=== PATIENT | male | born 1955 | race Caucasian/White ===

== ENCOUNTER → 2017-12-25 | Outpatient (CLI) | payer OTHER ==
[~2017-12-25] MED LIST: E-Z-GAS II EFFERVESCENT PACKET (SODIUM BICARB./CITRIC ACID/SIMETHICONE) As Ordered; E-Z-HD 98% w/w 340GM SUSP BTL As Ordered; E-Z-PAQUE 96% w/w SUSP 176GM BTL As Ordered
== END ==
LOC: M RAD 08:21
DX: K21.9 Gastro-esophageal reflux disease without esophagitis (principal)
CPT/HCPCS: 74220

== ENCOUNTER 2018-01-22 10:31 | Day surgery (SDC) | payer OTHER ==
[~2018-01-22 10:31] MED LIST changes: -E-Z-GAS II EFFERVESCENT PACKET (SODIUM BICARB./CITRIC ACID/SIMETHICONE) As Ordered; -E-Z-HD 98% w/w 340GM SUSP BTL As Ordered; -E-Z-PAQUE 96% w/w SUSP 176GM BTL As Ordered; +LIDOCAINE 2% INJ 100 MG/5 ML SDV (FOR ANES.) As Ordered; +PROPOFOL 200 MG/20 ML VIAL As Ordered; +fentaNYL 100 MCG/2 ML INJECTION (J3010) As Ordered
[2018-01-22] MEDS: NS 1,000 ML IV (10:44)
[2018-01-22] MEDS ORDERED: PROPOFOL 200 MG/20 ML VIAL As Ordered (11:21)
== END 2018-01-22 12:30 | disposition home or self-care (01) ==
LOC: M OPP 10:31
DX: Z12.11 Encounter for screening for malignant neoplasm of colon (principal); K64.0 First degree hemorrhoids; R12 Heartburn; R05 Cough; K22.8 Other specified diseases of esophagus; K44.9 Diaphragmatic hernia without obstruction or gangrene; K21.0 Gastro-esophageal reflux disease with esophagitis; J45.909 Unspecified asthma, uncomplicated; M19.90 Unspecified osteoarthritis, unspecified site; L40.9 Psoriasis, unspecified; Z98.84 Bariatric surgery status; Z91.013 Allergy to seafood; Z79.899 Other long term (current) drug therapy
CPT/HCPCS: G0121

== ENCOUNTER → 2019-04-07 | Outpatient (CLI) | payer OTHER ==
[~2019-04-07] MED LIST changes: +CLOB0.0526 EX; +CLOB05OI EXT; +COSE1INJ SC; +E-Z-GAS II EFFERVESCENT PACKET (SODIUM BICARB./CITRIC ACID/SIMETHICONE) As Ordered ONE; +E-Z-HD 98% w/w 340GM SUSP BTL As Ordered ONE; +E-Z-PAQUE 96% w/w SUSP 176GM BTL As Ordered ONE; +FLUTISP; -LIDOCAINE 2% INJ 100 MG/5 ML SDV (FOR ANES.) As Ordered; +LORA-243 PO; +MUCI600T31 PO; +PANT40TA3 PO; +PROAAER10 INH; -PROPOFOL 200 MG/20 ML VIAL As Ordered; +TERA1CA PO; +VITA100067 PO; -fentaNYL 100 MCG/2 ML INJECTION (J3010) As Ordered
--- NOTE | 2019-04-07 10:01 | REP ---
Clinical: Follow up abnormal lung findings. Technique: Axial noncontrast images from the thoracic inlet to the upper abdomen with coronal and sagittal re-formations. Comparison: None. Findings: Minimal chronic-appearing age-related interstitial changes are noted (right greater than left) there is a 6 mm noncalcified subpleural pulmonary nodule in the right posterior sulcus (image 68). No further consolidation, effusion, or pneumothorax. Tracheobronchial tree is patent. No obvious adenopathy by non contrast evaluation. The mediastinum demonstrates relatively normal thoracic aorta and heart without aneurysm or cardiomegaly. No pericardial effusion. High density oral contrast material noted within the esophagus and stomach/duodenum which limits and obscures the visualized upper abdomen. Impression: 1. 6 mm noncalcified nodule in the subpleural right lower lobe. No prior examination is available for comparison. Consider 6-month follow-up. Electronically Signed by Marcello Ferraro MD 04/07/2019 09:52 A
== END ==
LOC: M RAD 07:58
PROVIDERS: ATTEND Physician Assistant
DX: R91.1 Solitary pulmonary nodule (principal); K44.9 Diaphragmatic hernia without obstruction or gangrene; R13.10 Dysphagia, unspecified; Z98.84 Bariatric surgery status

== ENCOUNTER → 2019-04-07 | Outpatient (CLI) | payer OTHER ==
[~2019-04-07] MED LIST changes: -E-Z-GAS II EFFERVESCENT PACKET (SODIUM BICARB./CITRIC ACID/SIMETHICONE) As Ordered ONE; -E-Z-HD 98% w/w 340GM SUSP BTL As Ordered ONE; -E-Z-PAQUE 96% w/w SUSP 176GM BTL As Ordered ONE
--- NOTE | 2019-04-07 15:10 | REP ---
Examination Requested: Upper G.I. Series With KUB Reason For Exam: History of lap band, dysphasia Upper GI Air Contrast The procedure was performed by NIC Ortiz, under the direct supervision of Dr. Ferraro. The images were reviewed with Dr. Ferraro. The electrical designer drafter film shows no organomegaly or pathological masses. The intestinal gas pattern appears normal. Liquid barium was given in the erect position as well as liquid barium in the prone oblique position in order to perform a single contrast upper GI examination. The oral and pharyngeal stages of deglutition were unremarkable. Esophageal transport is efficient and there is no esophagitis, stricture, or mucosal ring noted. There is a small hiatal hernia. Gastroesophageal reflux was not visualized throughout the course of the exam. The stomach ayers are normally outlined. The patient is noted to be status post gastric banding and the lap band is in normal position. The rugal folds are smooth and regular. There is no gastritis, neoplasm, ulcer disease noted. The duodenal ayers are normally outlined. The mucosal folds are smooth and regular. There is no duodenitis, peptic ulcer disease, or neoplasm noted. The visualized portion of the proximal small bowel appears normal in course and caliber. Impression: 1. Small hiatal hernia. 2. Lap band is normal position. 0.9 minutes of fluoroscopy time was utilized for this procedure. Some fluoroscopic images are performed with last image hold technology. These images require no additional radiation. Reviewed by NIC Carey 04/07/2019 01:07 P Electronically Signed by Marcello Ferraro MD 04/07/2019 03:02 P
== END ==
LOC: M RAD 07:49
PROVIDERS: ATTEND Surgery
DX: K44.9 Diaphragmatic hernia without obstruction or gangrene (principal); R13.10 Dysphagia, unspecified; Z98.84 Bariatric surgery status

== ENCOUNTER → 2019-06-23 | Outpatient (CLI) | payer OTHER ==
[~2019-06-23] MED LIST changes: +METHACHOLINE KIT (J7674) INH ONE
--- NOTE | 2019-06-23 15:33 | PFTRPT ---
Site: 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 Review Status: Not Reviewed Pre-Bronch Post-Bronch Pred Actual %Pred Actual %Chng SPIROMETRY FVC (L) 4.46 2.75 61 3.12 13 FEV1 (L) 3.33 2.10 63 2.21 5 FEV1/FVC (%) 75 76 101 71 -7 FEF 25% (L/sec) 7.69 4.14 53 4.49 8 FEF 50% (L/sec) 4.76 2.05 43 2.42 17 FEF 75% (L/sec) 1.41 0.71 50 0.84 18 FEF 25-75% (L/sec) 2.66 1.67 62 2.03 21 FEF Max (L/sec) 8.65 5.58 64 5.58 FIVC (L) 3.09 3.16 2 FIF 50% (L/sec) 4.60 2.73 59 3.30 20 FIF Max (L/sec) 2.89 3.52 21 Expiratory Time (sec) 7.98 5.62 -29 Back Extrap Vol (L) 0.05 0.06 14 Time To FEFmax (sec) 0.063 0.065 2
== END ==
LOC: M CARPUL 14:31
PROVIDERS: ATTEND Physician Assistant
DX: R06.00 Dyspnea, unspecified (principal)

== ENCOUNTER → 2019-10-21 | Outpatient (CLI) | payer OTHER ==
[~2019-10-21] MED LIST changes: -METHACHOLINE KIT (J7674) INH ONE
--- NOTE | 2019-10-22 16:19 | REP ---
Clinical: Abnormal lung findings. Technique: Axial noncontrast images from the thoracic inlet to the upper abdomen with coronal and sagittal re-formations. Comparison: 04/07/2019. Findings: The bilateral lung ca are relatively well aerated and essentially clear. No focal consolidation, significant nodule or mass lesion. A small 6 mm noncalcified nodule in the right posterior lung base appears to be replaced by a minimal scarring and chronic change. No pleural effusion. No pneumothorax. Tracheobronchial tree is patent. Mediastinum demonstrates minimal atherosclerotic changes to the thoracic aorta and coronary arteries without aortic aneurysm or cardiomegaly. No pericardial effusion. Surrounding musculoskeletal structures are intact. Upper abdomen demonstrates previous Lab banding. Impression: 1. Minimal scarring at the right lung base at the site of previously noted 6 mm noncalcified nodule which has subsequently resolved. 2. No acute mediastinal or pleuroparenchymal process appreciated. Electronically Signed by Marcello Ferraro MD 10/22/2019 04:10 P
== END ==
LOC: M RAD 09:46
PROVIDERS: ATTEND Physician Assistant
DX: J98.4 Other disorders of lung (principal); I70.0 Atherosclerosis of aorta; I25.10 Atherosclerotic heart disease of native coronary artery without angina pectoris

== ENCOUNTER 2020-04-27 11:09 | Emergency (ER) | payer OTHER, MEDICARE ==
[~2020-04-27] VITALS: Ht 175.3 cm; Wt 124.5 kg
[~2020-04-27 11:09] MED LIST changes: +PANT40TA29 PO; -PANT40TA3 PO
[2020-04-27] MEDS ORDERED: IBUP200T45 PO (11:28)
[2020-04-27] MEDS ORDERED: OXYC-517 PO (11:28)
[2020-04-27 11:58] LABS: BASO % 0.4 % (0.0-1.0); EOS # 0.5 10^3/uL (0.0-0.5); EOS % 7.5 % (0.0-3.0); HEMOGLOBIN 12.6 g/dl (13.5-17.5); LYMPH # 0.9 10^3/uL (1.5-5.0); LYMPH % 13.1 % (24.0-44.0); MEAN CORPUSCULAR HEMOGLOBIN 29.1 pg (27.0-33.0); MEAN CORPUSCULAR HGB CONC 33.2 g/dl (32.0-36.5); MEAN CORPUSCULAR VOLUME 87.8 fl (80.0-96.0); MONO # 0.6 10^3/uL (0.0-0.8); MONO % 8.8 % (0.0-5.0); NEUTROPHILS % 69.9 % (36.0-66.0); PLATELET COUNT, AUTOMATED 186 10^3/uL (150-450); RED BLOOD COUNT 4.33 10^6/uL (4.30-6.10); WHITE BLOOD COUNT 7.1 10^3/uL (4.0-10.0)
[2020-04-27 12:12] LABS: INR 1.01; PROTHROMBIN TIME 13.5 SECONDS (12.5-14.3)
[2020-04-27 12:25] LABS: ALBUMIN 3.6 GM/DL (3.2-5.2); ALT/SGPT 39 U/L (12-78); BILIRUBIN,DIRECT 0.2 MG/DL (0.0-0.2); BILIRUBIN,TOTAL 0.8 MG/DL (0.2-1.0); BLOOD UREA NITROGEN 21 MG/DL (7-18); C REACTIVE PROTEIN QUANTITATIV 4.39 MG/DL (0.00-0.30); CALCIUM LEVEL 8.6 MG/DL (8.8-10.2); CARBON DIOXIDE LEVEL 30 MEQ/L (21-32); CHLORIDE LEVEL 103 MEQ/L (98-107); CREATININE FOR GFR 1.04 MG/DL (0.70-1.30); GLOMERULAR FILTRATION RATE > 60.0 (>49); GLUCOSE, FASTING 97 MG/DL (70-100); POTASSIUM SERUM 4.4 MEQ/L (3.5-5.1); SODIUM LEVEL 139 MEQ/L (136-145)
[2020-04-27 12:29] LABS: ERYTHROCYTE SEDIMENTATION RATE 41 mm/hr (0-20)
--- NOTE | 2020-04-27 13:14 | REP ---
INDICATION: left calf swelling, s/p knee replacement concern clot. COMPARISON: None. TECHNIQUE: Left lower extremity duplex venous ultrasound. FINDINGS: The deep veins are anechoic and fully compressible from the groin to the popliteal fossa in the left lower extremity. Color flow imaging is homogeneous. Spectral Doppler interrogation demonstrates intact respiratory variation in flow and normal manual augmentation of flow. There is no evidence of deep vein thrombosis. IMPRESSION: Negative left lower extremity duplex venous ultrasound. No evidence of deep vein thrombosis. <Electronically signed by Cruz Garcia > 04/27/20 [id number]
[2020-04-27 14:12] VITALS: BP 150/77
== END 2020-04-27 14:33 | disposition home or self-care (01) ==
LOC: M ED 11:09
DX: R22.42 Localized swelling, mass and lump, left lower limb (principal); Z98.890 Other specified postprocedural states; Z98.84 Bariatric surgery status; Z91.018 Allergy to other foods

== ENCOUNTER 2020-05-11 18:09 | Emergency (ER) | payer MEDICARE, OTHER ==
[~2020-05-11] VITALS: Ht 175.3 cm; Wt 113.6 kg
[~2020-05-11 18:09] MED LIST changes: +IBUP200T45 PO; +OXYC-517 PO
[2020-05-11] MEDS ORDERED: ACET1TAB55 PO (18:20)
[2020-05-11] MEDS ORDERED: ASPI81TA26 PO (18:20)
[2020-05-11] MEDS ORDERED: ONDANSETRON 4 MG ORAL DISINTEGRATING TAB PO ONE (19:45)
[2020-05-11] MEDS ORDERED: ONDA4TAB6 PO (20:05)
[2020-05-11 20:18] VITALS: BP 148/74
== END 2020-05-11 20:20 | disposition home or self-care (01) ==
LOC: M ED 18:09
DX: R51.9 Headache, unspecified (principal); R11.0 Nausea; R10.9 Unspecified abdominal pain; M79.10 Myalgia, unspecified site; Z20.828 Contact with and (suspected) exposure to other viral communicable diseases; J45.909 Unspecified asthma, uncomplicated; Z87.891 Personal history of nicotine dependence; Z98.890 Other specified postprocedural states; Z91.013 Allergy to seafood; Z79.82 Long term (current) use of aspirin
CPT/HCPCS: 99283; U0003

== ENCOUNTER → 2020-06-01 | Outpatient (CLI) | payer MEDICARE, OTHER ==
[~2020-06-01] MED LIST changes: +ACET1TAB55 PO; +ASPI81TA26 PO; +ONDA4TAB6 PO
--- NOTE | 2020-06-02 15:06 | SLEEPCENT ---
NOCTURNAL POLYSOMNOGRAPHY DATE: 06/01/2020 ORDERED BY: KIM Simon Nocturnal polysomnography was performed for evaluation of sleep physiology in this patient with a history of excessive somnolence and nonrestorative sleep. 7 hours and 54 minutes of data were reviewed. There were 374.5 minutes of sleep identified. Sleep latency was prolonged at 30 minutes. REM latency was normal at 80 minutes. Sleep architecture was fair with some fragmentation. There were three REM cycles noted. Overall sleep efficiency was 79.8%. The electrocardiogram showed a sinus rhythm with an average heart rate of 58 beats per minute. Rate range 40 to 104. Frequent PVCs were noted during portions of the study. EEG showed normal waveforms for wake and sleep. There were 51 respiratory events identified of 10 seconds in duration or greater for an apnea-hypopnea index of 8.2. The events were obstructive and not exclusive to sleep stage nor body posture. Arousals from respiratory events were noted 4.6 times per hour and oxygen desaturations were seen into the 80s. There was also significant limb activity appreciated with four trains of 30+ events. Limb movement arousal index was 14.9. IMPRESSION: 1. Obstructive sleep apnea syndrome (G47.33), apnea-hypopnea index 8.2. 2. Possible periodic limb movement disorder (G47.61), limb movement arousal index 14.9. RECOMMENDATION: The patient should be encouraged to return to [facility] for pressure therapy. In the interim, alcohol and sedative avoidance should be practiced and caution exercised during the operation of motor vehicles. Pending results of pressure therapy, interventions to reduce the frequency of arousal from limb activity may also be helpful. Hasmukh Paris
== END ==
LOC: M SLEEP 20:00
PROVIDERS: ATTEND Physician Assistant
DX: G47.33 Obstructive sleep apnea (adult) (pediatric) (principal); G47.61 Periodic limb movement disorder; R40.0 Somnolence

== ENCOUNTER → 2021-08-02 | Outpatient (REF) | payer MEDICARE, OTHER ==
[~2021-08-02] MED LIST changes: +ASPI325T57 PO; +BACT800T5 PO; +DICL1GEL3 TOP; +HIBI4LIQ EX; +MUPI2OI NARES; +RIFA30CA PO; +TREM100I SC
[2021-08-02 13:25] LABS: APPEARANCE, URINE CLEAR (CLEAR); BACTERIA, URINE AUTO NEGATIVE (NEGATIVE); BILIRUBIN, URINE AUTO NEGATIVE (NEGATIVE); BLOOD, URINE BLOOD NEGATIVE (NEGATIVE); COLOR, URINE YELLOW (YELLOW); GLUCOSE, URINE (UA) AUTO NEGATIVE (NEGATIVE); KETONE, URINE AUTO NEGATIVE (NEGATIVE); LEUKOCYTE ESTERASE, URINE AUTO NEGATIVE (NEGATIVE); MUCUS, URINE SMALL (NEGATIVE); NITRITE, URINE AUTO NEGATIVE (NEGATIVE); PROTEIN, URINE AUTO NEGATIVE (NEGATIVE); RBC, URINE AUTO 1 /HPF (0-3); SPECIFIC GRAVITY URINE AUTO 1.024 (1.002-1.035); SQUAMOUS EPITHELIAL CELL UR AU 0 /HPF (0-6); UROBILINOGEN, URINE AUTO 0.2 mg/dL (0.0-2.0); WBC, URINE AUTO 0 /HPF (0-3)
== END ==
LOC: M SMT 12:51
PROVIDERS: ATTEND Physician Assistant
DX: N32.81 Overactive bladder (principal); Z79.899 Other long term (current) drug therapy

== ENCOUNTER 2021-08-21 12:22 | Inpatient (IN) | payer MEDICARE, OTHER ==
[~2021-08-21] VITALS: Ht 175.3 cm; Wt 124.5 kg
[~2021-08-21 12:22] MED LIST changes: -ASPI325T57 PO; -BACT800T5 PO; -DICL1GEL3 TOP; -HIBI4LIQ EX; -MUPI2OI NARES; -RIFA30CA PO; -TREM100I SC
[2021-08-21 14:45] LABS: BLOOD UREA NITROGEN 18 MG/DL (7-18); CALCIUM LEVEL 8.6 MG/DL (8.8-10.2); CARBON DIOXIDE LEVEL 26 MEQ/L (21-32); CHLORIDE LEVEL 104 MEQ/L (98-107); CREATININE FOR GFR 0.99 MG/DL (0.70-1.30); GLOMERULAR FILTRATION RATE > 60.0 (>49); GLUCOSE, FASTING 139 MG/DL (70-100); SODIUM LEVEL 135 MEQ/L (136-145)
[2021-08-21] MEDS ORDERED: NS 500 ML IV ONE (15:05)
[2021-08-21 15:20] LABS: BASO % 0.3 % (0.0-1.0); EOS # 0.1 10^3/uL (0.0-0.5); EOS % 0.4 % (0.0-3.0); HEMATOCRIT 42.9 % (42.0-52.0); HEMOGLOBIN 14.9 g/dl (13.5-17.5); LYMPH # 0.7 10^3/uL (1.5-5.0); MEAN CORPUSCULAR HEMOGLOBIN 29.5 pg (27.0-33.0); MEAN CORPUSCULAR HGB CONC 34.7 g/dl (32.0-36.5); NEUTROPHILS # 11.7 10^3/uL (1.5-8.5); NEUTROPHILS % 86.9 % (36.0-66.0); PLATELET COUNT, AUTOMATED 137 10^3/uL (150-450); RED BLOOD COUNT 5.05 10^6/uL (4.30-6.10); WHITE BLOOD COUNT 13.5 10^3/uL (4.0-10.0)
[2021-08-21 15:52] LABS: ALBUMIN 3.6 GM/DL (3.2-5.2); BILIRUBIN,DIRECT 0.2 MG/DL (0.0-0.2); BILIRUBIN,TOTAL 0.9 MG/DL (0.2-1.0); TOTAL PROTEIN 7.7 GM/DL (6.4-8.2)
[2021-08-21 17:12] LABS: RSV AMPLIFICATION NEGATIVE (NEGATIVE)
[2021-08-21] MEDS ORDERED: ACETAMINOPHEN 325 MG TAB PO ONE (17:45)
[2021-08-21] MEDS ORDERED: VANCOMYCIN HCL 2,000 MG in D5W 500 ML IV ONE (17:45)
[2021-08-21] MEDS ORDERED: NS 1,000 ML IV ONE (17:55)
[2021-08-21] MEDS ORDERED: VANCOMYCIN HCL 1,000 MG, VIAL MATE ADAPTER 1 EACH in NS 250 ML IV SCH (18:00)
[2021-08-21] MEDS ORDERED: ACETAMINOPHEN TAB 650MG DOSE (2X325MG) PO PRN (18:00)
[2021-08-21] MEDS ORDERED: VANCOMYCIN HCL 1,000 MG, VIAL MATE ADAPTER 1 EACH in NS 250 ML IV ONE ×2 (18:00→19:00)
[2021-08-21] MEDS ORDERED: DICL1GEL3 TOP (18:54)
[2021-08-21] MEDS ORDERED: TREM100I SC (18:54)
[2021-08-21] MEDS ORDERED: ASPI325T57 PO (18:54)
[2021-08-21] MEDS ORDERED: HOME MED LIST COMPLETE! XX SCH (18:55)
[2021-08-21 19:19] LABS: INR 1.19; PROTHROMBIN TIME 15.5 SECONDS (12.7-14.5)
[2021-08-21 19:20] LABS: PARTIAL THROMBOPLASTIN TIME 33.7 SECONDS (25.9-37.0)
[2021-08-21] MEDS ORDERED: ALBUTEROL 90 MCG/ACT 8GM HFA INHALER INH PRN (20:15)
[2021-08-21] MEDS ORDERED: oxyCODONE 5MG TAB PO PRN (20:15)
[2021-08-21 20:25] VITALS: BP 154/72
[2021-08-21] MEDS: BACITRACIN OINTMENT 30GM TUBE TOP SCH (21:00)
[2021-08-21] MEDS: ENOXAPARIN 40MG/0.4ML SYRINGE (J1650 PER 10MG) SC SCH (21:20)
[2021-08-21] MEDS: cefTRIAXone SOD 1 GM in D5W MINI-BAG PLUS 50 ML IV SCH (21:20)
[2021-08-22] MEDS: VANCOMYCIN HCL 750 MG, VIAL MATE ADAPTER 1 EACH in NS 250 ML IV SCH ×6 (02:13→19:45)
[2021-08-22 06:00] VITALS: BP 136/62
[2021-08-22 07:04] LABS: HEMATOCRIT 38.4 % (42.0-52.0); HEMOGLOBIN 13.2 g/dl (13.5-17.5); MEAN CORPUSCULAR HEMOGLOBIN 28.9 pg (27.0-33.0); MEAN CORPUSCULAR HGB CONC 34.4 g/dl (32.0-36.5); MEAN CORPUSCULAR VOLUME 84.2 fl (80.0-96.0); PLATELET COUNT, AUTOMATED 120 10^3/uL (150-450); RED BLOOD COUNT 4.56 10^6/uL (4.30-6.10); WHITE BLOOD COUNT 10.1 10^3/uL (4.0-10.0)
[2021-08-22 07:25] LABS: ALT/SGPT 29 U/L (12-78); BILIRUBIN,TOTAL 0.8 MG/DL (0.2-1.0); BLOOD UREA NITROGEN 14 MG/DL (7-18); CALCIUM LEVEL 8.1 MG/DL (8.8-10.2); CARBON DIOXIDE LEVEL 24 MEQ/L (21-32); CHLORIDE LEVEL 108 MEQ/L (98-107); CREATININE FOR GFR 0.78 MG/DL (0.70-1.30); GLOMERULAR FILTRATION RATE > 60.0 (>49); GLUCOSE, FASTING 118 MG/DL (70-100); POTASSIUM SERUM 3.9 MEQ/L (3.5-5.1); SODIUM LEVEL 139 MEQ/L (136-145); TOTAL PROTEIN 6.2 GM/DL (6.4-8.2)
[2021-08-22] MEDS: ASPIRIN 325 MG TAB PO SCH (10:02)
[2021-08-22] MEDS: BACITRACIN OINTMENT 30GM TUBE TOP SCH ×2 (10:03→21:06)
[2021-08-22 17:51] VITALS: BP 142/58
[2021-08-22] MEDS: ENOXAPARIN 40MG/0.4ML SYRINGE (J1650 PER 10MG) SC SCH (21:06)
[2021-08-22] MEDS: cefTRIAXone SOD 1 GM in D5W MINI-BAG PLUS 50 ML IV SCH (21:06)
[2021-08-23] MEDS: VANCOMYCIN HCL 750 MG, VIAL MATE ADAPTER 1 EACH in NS 250 ML IV SCH ×2 (02:09→03:31)
[2021-08-23 06:00] VITALS: BP 149/76
[2021-08-23 06:38] LABS: HEMOGLOBIN 13.7 g/dl (13.5-17.5); MEAN CORPUSCULAR HEMOGLOBIN 29.2 pg (27.0-33.0); MEAN CORPUSCULAR HGB CONC 34.3 g/dl (32.0-36.5); MEAN CORPUSCULAR VOLUME 85.3 fl (80.0-96.0); PLATELET COUNT, AUTOMATED 135 10^3/uL (150-450); RED BLOOD COUNT 4.69 10^6/uL (4.30-6.10); WHITE BLOOD COUNT 6.5 10^3/uL (4.0-10.0)
[2021-08-23 07:02] LABS: ALBUMIN 2.8 GM/DL (3.2-5.2); ALT/SGPT 31 U/L (12-78); BILIRUBIN,TOTAL 0.4 MG/DL (0.2-1.0); BLOOD UREA NITROGEN 13 MG/DL (7-18); CALCIUM LEVEL 8.7 MG/DL (8.8-10.2); CARBON DIOXIDE LEVEL 28 MEQ/L (21-32); CHLORIDE LEVEL 110 MEQ/L (98-107); CREATININE FOR GFR 0.69 MG/DL (0.70-1.30); GLOMERULAR FILTRATION RATE > 60.0 (>49); GLUCOSE, FASTING 114 MG/DL (70-100); POTASSIUM SERUM 4.4 MEQ/L (3.5-5.1); SODIUM LEVEL 141 MEQ/L (136-145); TOTAL PROTEIN 6.8 GM/DL (6.4-8.2)
[2021-08-23] MEDS: VANCOMYCIN HCL 1,000 MG, VIAL MATE ADAPTER 1 EACH in NS 250 ML IV SCH ×4 (10:00→17:45)
[2021-08-23] MEDS: ASPIRIN 325 MG TAB PO SCH (10:43)
[2021-08-23] MEDS: BACITRACIN OINTMENT 30GM TUBE TOP SCH ×2 (10:44→20:32)
[2021-08-23] MEDS ORDERED: ISOVUE-370 76% 100ML VIAL As Ordered ONE (11:23)
[2021-08-23 14:00] VITALS: BP 149/74
[2021-08-23 18:58] VITALS: BP_SYST 116; BP_SYST 161; BP_DIAS 50; BP_DIAS 78
[2021-08-23] MEDS: cefTRIAXone SOD 1 GM in D5W MINI-BAG PLUS 50 ML IV SCH (20:31)
[2021-08-23] MEDS: ENOXAPARIN 40MG/0.4ML SYRINGE (J1650 PER 10MG) SC SCH (20:31)
[2021-08-24] MEDS: VANCOMYCIN HCL 1,000 MG, VIAL MATE ADAPTER 1 EACH in NS 250 ML IV SCH (01:12)
[2021-08-24 06:00] VITALS: BP 160/79
[2021-08-24 08:16] LABS: HEMATOCRIT 40.2 % (42.0-52.0); MEAN CORPUSCULAR HEMOGLOBIN 29.2 pg (27.0-33.0); MEAN CORPUSCULAR HGB CONC 34.8 g/dl (32.0-36.5); MEAN CORPUSCULAR VOLUME 83.9 fl (80.0-96.0); PLATELET COUNT, AUTOMATED 159 10^3/uL (150-450); RED BLOOD COUNT 4.79 10^6/uL (4.30-6.10); WHITE BLOOD COUNT 4.7 10^3/uL (4.0-10.0)
[2021-08-24 08:44] LABS: ALT/SGPT 37 U/L (12-78); BILIRUBIN,TOTAL 0.4 MG/DL (0.2-1.0); BLOOD UREA NITROGEN 14 MG/DL (7-18); CALCIUM LEVEL 8.4 MG/DL (8.8-10.2); CARBON DIOXIDE LEVEL 26 MEQ/L (21-32); CHLORIDE LEVEL 106 MEQ/L (98-107); CREATININE FOR GFR 0.66 MG/DL (0.70-1.30); GLOMERULAR FILTRATION RATE > 60.0 (>49); GLUCOSE, FASTING 99 MG/DL (70-100); MAGNESIUM LEVEL 2.1 MG/DL (1.8-2.4); POTASSIUM SERUM 3.8 MEQ/L (3.5-5.1); SODIUM LEVEL 140 MEQ/L (136-145); TOTAL PROTEIN 6.6 GM/DL (6.4-8.2)
[2021-08-24] MEDS ORDERED: ENOXAPARIN 40MG/0.4ML SYRINGE (J1650 PER 10MG) SC SCH (09:00)
[2021-08-24 09:45] LABS: VANCOMYCIN LEVEL TROUGH 19.4 UG/ML (10.0-20.0)
[2021-08-24] MEDS: BACITRACIN OINTMENT 30GM TUBE TOP SCH (10:05)
[2021-08-24] MEDS: ASPIRIN 325 MG TAB PO SCH (10:05)
[2021-08-24] MEDS ORDERED: VANCOMYCIN HCL 1,000 MG, VIAL MATE ADAPTER 1 EACH in NS 250 ML IV SCH (12:00)
[2021-08-24 12:03] LABS: C REACTIVE PROTEIN QUANTITATIV 8.33 MG/DL (0.00-0.30)
[2021-08-24 14:00] VITALS: BP 152/64
[2021-08-24] MEDS ORDERED: BACT800T5 PO (14:01)
[2021-08-24] MEDS ORDERED: RIFA30CA PO (14:01)
[2021-08-24] MEDS ORDERED: HIBI4LIQ EX (14:01)
[2021-08-24] MEDS ORDERED: MUPI2OI NARES (14:01)
== END 2021-08-24 16:46 | disposition home or self-care (01) | DRG 872 ==
LOC: M ED 12:22 → M ED INP 17:59 → EEVIPCON 17:59 → M MSPAV 20:24
PROVIDERS: ADMIT Internal Medicine; ATTEND Family Medicine
DX: A41.9 Sepsis, unspecified organism (principal); L03.116 Cellulitis of left lower limb; N39.0 Urinary tract infection, site not specified; Z68.41 Body mass index [BMI] 40.0-44.9, adult; L02.422 Furuncle of left axilla; Z96.642 Presence of left artificial hip joint; R53.1 Weakness; J45.909 Unspecified asthma, uncomplicated; K21.9 Gastro-esophageal reflux disease without esophagitis; L40.9 Psoriasis, unspecified; E66.9 Obesity, unspecified; B96.20 Unspecified Escherichia coli [E. coli] as the cause of diseases classified elsewhere; R32 Unspecified urinary incontinence; Z96.652 Presence of left artificial knee joint; Z79.82 Long term (current) use of aspirin; Z79.899 Other long term (current) drug therapy; Z91.013 Allergy to seafood

== ENCOUNTER → 2021-10-16 | Outpatient (REF) | payer MEDICARE, OTHER ==
[~2021-10-16] MED LIST changes: +ASPI325T57 PO; +BACT800T5 PO; +DICL1GEL3 TOP; +HIBI4LIQ EX; +MUPI2OI NARES; +RIFA30CA PO; +TREM100I SC
== END ==
LOC: M SFHCPLAZ 12:50
PROVIDERS: ATTEND Internal Medicine Infectious Disease
DX: A49.02 Methicillin resistant Staphylococcus aureus infection, unspecified site (principal)

== ENCOUNTER → 2021-11-02 | Outpatient (REF) | payer MEDICARE, OTHER ==
[2021-11-02 13:40] LABS: APPEARANCE, URINE CLEAR (CLEAR); BACTERIA, URINE AUTO NEGATIVE (NEGATIVE); BILIRUBIN, URINE AUTO NEGATIVE (NEGATIVE); BLOOD, URINE BLOOD 2+ (NEGATIVE); CALCIUM OXALATE CRYSTALS SMALL; COLOR, URINE YELLOW (YELLOW); GLUCOSE, URINE (UA) AUTO NEGATIVE (NEGATIVE); KETONE, URINE AUTO NEGATIVE (NEGATIVE); LEUKOCYTE ESTERASE, URINE AUTO NEGATIVE (NEGATIVE); MUCUS, URINE SMALL (NEGATIVE); NITRITE, URINE AUTO NEGATIVE (NEGATIVE); PROTEIN, URINE AUTO NEGATIVE (NEGATIVE); RBC, URINE AUTO 4 /HPF (0-3); SPECIFIC GRAVITY URINE AUTO 1.026 (1.002-1.035); SQUAMOUS EPITHELIAL CELL UR AU 2 /HPF (0-6); UROBILINOGEN, URINE AUTO 0.2 mg/dL (0.0-2.0); WBC, URINE AUTO 1 /HPF (0-3)
== END ==
LOC: M SMT 12:44
PROVIDERS: ATTEND Physician Assistant
DX: N32.81 Overactive bladder (principal)

== ENCOUNTER 2023-06-24 19:44 | Observation (INO) | payer MEDICARE, OTHER ==
[~2023-06-24] VITALS: Ht 175.3 cm; Wt 118.0 kg
[~2023-06-24 19:44] MED LIST changes: +DICL100G10 TOP; -DICL1GEL3 TOP
[2023-06-24 20:39] LABS: BASO # 0.1 10^3/uL (0.0-0.2); BASO % 0.6 % (0.0-1.0); EOS # 0.3 10^3/uL (0.0-0.5); EOS % 3.8 % (0.0-3.0); HEMATOCRIT 42.4 % (42.0-52.0); HEMOGLOBIN 14.6 g/dl (13.5-17.5); LYMPH # 1.2 10^3/uL (1.5-5.0); LYMPH % 15.1 % (24.0-44.0); MEAN CORPUSCULAR HEMOGLOBIN 28.5 pg (27.0-33.0); MEAN CORPUSCULAR HGB CONC 34.4 g/dl (32.0-36.5); MEAN CORPUSCULAR VOLUME 82.7 fl (80.0-96.0); MONO # 0.8 10^3/uL (0.0-0.8); MONO % 10.2 % (2.0-8.0); NEUTROPHILS # 5.5 10^3/uL (1.5-8.5); PLATELET COUNT, AUTOMATED 176 10^3/uL (150-450); RED BLOOD COUNT 5.13 10^6/uL (4.30-6.10); WHITE BLOOD COUNT 7.8 10^3/uL (4.0-10.0)
[2023-06-24 20:58] LABS: CK-MB VALUE MASS < 1.0 NG/ML (<3.6)
[2023-06-24 20:59] LABS: LIPASE 29 U/L (12-53)
[2023-06-24 21:01] LABS: CPK CREATINE PHOSPHOKINASE 106 U/L (46-171); MB/CK RELATIVE INDEX 0.94 (< OR =4)
[2023-06-24 21:02] LABS: ALBUMIN 3.5 G/DL (3.2-5.2); ALKALINE PHOSPHATASE 70 U/L (46-116); ALT/SGPT 24 U/L (7.0-40); AST/SGOT 13 U/L (<34); BILIRUBIN,DIRECT 0.2 MG/DL (<0.4); BILIRUBIN,TOTAL 0.5 MG/DL (0.3-1.2); BLOOD UREA NITROGEN 25 MG/DL (9-23); CALCIUM LEVEL 8.5 MG/DL (8.3-10.6); CARBON DIOXIDE LEVEL 26 MMOL/L (20-31); CHLORIDE LEVEL 105 MMOL/L (98-107); CREATININE FOR GFR 0.89 MG/DL (0.70-1.30); GLOMERULAR FILTRATION RATE > 60.0 (>49); GLUCOSE, FASTING 134 MG/DL (74-106); POTASSIUM SERUM 3.8 MMOL/L (3.5-5.1); SODIUM LEVEL 136 MMOL/L (136-145); THYROID STIMULATING HORMONE 2.017 uIU/ML (0.55-4.78); TOTAL PROTEIN 6.8 G/DL (5.7-8.2)
[2023-06-24] MEDS ORDERED: ISOVUE-370 76% 100ML VIAL As Ordered ONE (21:42)
[2023-06-24 22:05] LABS: MB/CK RELATIVE INDEX 0.92 (< OR =4)
[2023-06-24] MEDS ORDERED: HEPARIN SOD (PORCINE) 5000UNITS/ML 1ML VIAL/SYRINGE IV PRN (22:20)
[2023-06-24] MEDS ORDERED: HEPARIN 25,000 UNITS/250 ML D5W BAG (100 UNITS/ML) As Ordered ONE (22:25)
[2023-06-24] MEDS: HEPARIN SOD (PORCINE) 5000UNITS/ML 1ML VIAL/SYRINGE IV ONE (22:28)
[2023-06-24] MEDS: HEPARIN DRIP 25,000 UNITS in IV 1 EA IV SCH (22:29)
[2023-06-24 22:47] LABS: INR 1.15; PROTHROMBIN TIME 14.3 SECONDS (12.5-14.5)
[2023-06-24 22:48] LABS: PARTIAL THROMBOPLASTIN TIME 31.2 SECONDS (24.8-34.2)
[2023-06-24 23:29] LABS: RSV AMPLIFICATION NEGATIVE (NEGATIVE)
[2023-06-25] MEDS ORDERED: RISA150S2 SQ (00:01)
[2023-06-25] MEDS ORDERED: ALBU8.5H INH (00:01)
[2023-06-25] MEDS ORDERED: ADVA230A INH (00:02)
[2023-06-25] MEDS ORDERED: LORA-622 PO (00:02)
[2023-06-25] MEDS ORDERED: [UNRECOGNIZED DRUG - CODE] PO (00:02)
[2023-06-25] MEDS ORDERED: HOME MED LIST COMPLETE! XX SCH (00:05)
[2023-06-25] MEDS ORDERED: HEPARIN SOD (PORCINE) 5000UNITS/ML 1ML VIAL/SYRINGE IV PRN (00:25)
[2023-06-25] MEDS: HEPARIN DRIP 25,000 UNITS in IV 1 EA IV SCH (01:00)
[2023-06-25] MEDS ORDERED: ALBUTEROL 90 MCG/ACT 8GM HFA INHALER INH PRN (01:05)
[2023-06-25] MEDS: HYDROMORPHONE HCL 0.5 MG/ 0.5 ML SYRINGE IV PRN (02:30)
[2023-06-25 06:36] LABS: BLOOD UREA NITROGEN 25 MG/DL (9-23); CALCIUM LEVEL 8.2 MG/DL (8.3-10.6); CARBON DIOXIDE LEVEL 23 MMOL/L (20-31); CHLORIDE LEVEL 108 MMOL/L (98-107); CREATININE FOR GFR 0.83 MG/DL (0.70-1.30); GLOMERULAR FILTRATION RATE > 60.0 (>49); GLUCOSE, FASTING 124 MG/DL (74-106); POTASSIUM SERUM 3.8 MMOL/L (3.5-5.1); SODIUM LEVEL 138 MMOL/L (136-145)
[2023-06-25 06:47] LABS: APPEARANCE, URINE CLEAR (CLEAR); BACTERIA, URINE AUTO NEGATIVE (NEGATIVE); BILIRUBIN, URINE AUTO NEGATIVE (NEGATIVE); BLOOD, URINE BLOOD 1+ (NEGATIVE); COLOR, URINE YELLOW (YELLOW); GLUCOSE, URINE (UA) AUTO NEGATIVE (NEGATIVE); KETONE, URINE AUTO NEGATIVE (NEGATIVE); LEUKOCYTE ESTERASE, URINE AUTO NEGATIVE (NEGATIVE); NITRITE, URINE AUTO NEGATIVE (NEGATIVE); PROTEIN, URINE AUTO NEGATIVE (NEGATIVE); RBC, URINE AUTO 1 /HPF (0-3); SPECIFIC GRAVITY URINE AUTO 1.048 (1.002-1.035); SQUAMOUS EPITHELIAL CELL UR AU 1 /HPF (0-6); UROBILINOGEN, URINE AUTO 0.2 mg/dL (0.0-2.0); WBC, URINE AUTO 1 /HPF (0-3)
[2023-06-25] MEDS: ADVAIR HFA 230/21MCG INHALER INH SCH (08:23)
[2023-06-25] MEDS ORDERED: ELIQ5TAB PO (09:16)
[2023-06-25] MEDS: APIXABAN 5 MG TAB (ELIQUIS) PO SCH (09:19)
[2023-06-25 10:31] VITALS: BP 165/58
[2023-06-25 11:31] VITALS: TEMP 98.8; O2SAT 95
[2023-07-02] MEDS ORDERED: APIXABAN 5 MG TAB (ELIQUIS) PO SCH (09:00)
== END 2023-06-25 11:34 | disposition home or self-care (01) ==
LOC: M ED 19:44 → M ED INP 19:45
PROVIDERS: ADMIT Internal Medicine; ATTEND Internal Medicine
DX: I26.99 Other pulmonary embolism without acute cor pulmonale (principal); I82.409 Acute embolism and thrombosis of unspecified deep veins of unspecified lower extremity; J45.909 Unspecified asthma, uncomplicated; L40.9 Psoriasis, unspecified; E66.9 Obesity, unspecified; Z79.01 Long term (current) use of anticoagulants; Z79.899 Other long term (current) drug therapy; Z91.013 Allergy to seafood
CPT/HCPCS: 71046; 71275; 80048; 80076; 81001; 82550; 82553; 83690; 83880; 84443; 84484; 85025; 85610; 85730; 87486; 87581; 87631; 87633; 87798; 93005; 93041; 93306; 93970; 94640; 94760; 96361; 96365; 96375; 99285; G0378; J1170; Q9967

== ENCOUNTER 2023-11-25 11:00 | Inpatient (IN) | payer MEDICARE, OTHER ==
[~2023-11-25] VITALS: Ht 175.3 cm; Wt 122.3 kg
[~2023-11-25 11:00] MED LIST changes: +ADVA230A INH; +ALBU8.5H INH; +ELIQ5TAB PO; +LORA-622 PO; +ONDA-282 PO; -ONDA4TAB6 PO; +RISA150S2 SQ; +[UNRECOGNIZED DRUG - CODE] PO
[2023-11-25 17:40] LABS: BASO # 0.1 10^3/uL (0.0-0.2); BASO % 0.8 % (0.0-1.0); EOS # 0.6 10^3/uL (0.0-0.5); EOS % 9.3 % (0.0-3.0); HEMATOCRIT 47.4 % (42.0-52.0); HEMOGLOBIN 16.1 g/dl (13.5-17.5); LYMPH # 1.4 10^3/uL (1.5-5.0); LYMPH % 23.2 % (24.0-44.0); MEAN CORPUSCULAR HEMOGLOBIN 29.5 pg (27.0-33.0); MEAN CORPUSCULAR VOLUME 86.8 fl (80.0-96.0); MONO # 0.5 10^3/uL (0.0-0.8); MONO % 8.3 % (2.0-8.0); NEUTROPHILS # 3.6 10^3/uL (1.5-8.5); NEUTROPHILS % 58.1 % (36.0-66.0); PLATELET COUNT, AUTOMATED 164 10^3/uL (150-450); RED BLOOD COUNT 5.46 10^6/uL (4.30-6.10); WHITE BLOOD COUNT 6.1 10^3/uL (4.0-10.0)
[2023-11-25 17:57] LABS: INR 1.3; PARTIAL THROMBOPLASTIN TIME 36.2 SECONDS (24.8-34.2); PROTHROMBIN TIME 15.8 SECONDS (12.5-14.5)
[2023-11-25 17:58] LABS: ALBUMIN 4.1 G/DL (3.2-5.2); ALKALINE PHOSPHATASE 78 U/L (46-116); ALT/SGPT 39 U/L (7.0-40); AST/SGOT 22 U/L (<34); BILIRUBIN,DIRECT 0.2 MG/DL (<0.4); BILIRUBIN,TOTAL 0.6 MG/DL (0.3-1.2); BLOOD UREA NITROGEN 23 MG/DL (9-23); CALCIUM LEVEL 9.1 MG/DL (8.3-10.6); CARBON DIOXIDE LEVEL 28 MMOL/L (20-31); CHLORIDE LEVEL 107 MMOL/L (98-107); CREATININE FOR GFR 0.88 MG/DL (0.70-1.30); GLOMERULAR FILTRATION RATE > 60.0 (>49); GLUCOSE, FASTING 103 MG/DL (74-106); POTASSIUM SERUM 4.4 MMOL/L (3.5-5.1); SODIUM LEVEL 141 MMOL/L (136-145); TOTAL PROTEIN 7.2 G/DL (5.7-8.2)
[2023-11-25 18:07] LABS: ERYTHROCYTE SEDIMENTATION RATE 9 mm/hr (0-20)
[2023-11-25] MEDS: NS 1,000 ML IV ONE ×2 (19:13→21:24)
[2023-11-25] MEDS: DOCUSATE SODIUM 100MG CAPSULE PO SCH (21:00)
[2023-11-25] MEDS ORDERED: MULT-40 PO (21:03)
[2023-11-25] MEDS ORDERED: ELIQ5TAB PO (21:03)
[2023-11-25] MEDS ORDERED: ALEV220T22 PO (21:03)
[2023-11-25] MEDS ORDERED: RISA150P SC (21:03)
[2023-11-25] MEDS ORDERED: HOME MED LIST COMPLETE! XX SCH (21:05)
[2023-11-25] MEDS ORDERED: ALBUTEROL 90 MCG/ACT 8GM HFA INHALER INH PRN (21:05)
[2023-11-26 00:38] VITALS: BP 164/93; TEMP 97.5; O2SAT 97
[2023-11-26] MEDS: LIDOCAINE 5% (LIDODERM) PATCH TD SCH (01:39)
[2023-11-26] MEDS: ACETAMINOPHEN TAB 650MG DOSE (2X325MG) PO PRN (01:39)
[2023-11-26 01:46] VITALS: BP 137/79
[2023-11-26] MEDS ORDERED: ACETAMINOPHEN 500 MG TAB PO PRN (02:35)
[2023-11-26 03:52] VITALS: BP 140/76; TEMP 97.2; O2SAT 98
[2023-11-26 04:38] LABS: HEMATOCRIT 41.8 % (42.0-52.0); HEMOGLOBIN 14.6 g/dl (13.5-17.5); MEAN CORPUSCULAR HGB CONC 34.9 g/dl (32.0-36.5); PLATELET COUNT, AUTOMATED 150 10^3/uL (150-450); RED BLOOD COUNT 4.86 10^6/uL (4.30-6.10); WHITE BLOOD COUNT 6.9 10^3/uL (4.0-10.0)
[2023-11-26 05:13] LABS: ALBUMIN 3.3 G/DL (3.2-5.2); ALKALINE PHOSPHATASE 66 U/L (46-116); ALT/SGPT 35 U/L (7.0-40); AST/SGOT 19 U/L (<34); BILIRUBIN,TOTAL 0.6 MG/DL (0.3-1.2); BLOOD UREA NITROGEN 21 MG/DL (9-23); CALCIUM LEVEL 7.9 MG/DL (8.3-10.6); CARBON DIOXIDE LEVEL 26 MMOL/L (20-31); CHLORIDE LEVEL 110 MMOL/L (98-107); CREATININE FOR GFR 0.84 MG/DL (0.70-1.30); GLOMERULAR FILTRATION RATE > 60.0 (>49); GLUCOSE, FASTING 97 MG/DL (74-106); POTASSIUM SERUM 4.6 MMOL/L (3.5-5.1); SODIUM LEVEL 140 MMOL/L (136-145)
[2023-11-26] MEDS: APIXABAN 5 MG TAB (ELIQUIS) PO SCH (08:20)
[2023-11-26] MEDS ORDERED: ENOXAPARIN 40MG/0.4ML SYRINGE (J1650 PER 10MG) SC SCH (09:00)
[2023-11-26] MEDS ORDERED: CEPH500T PO (11:15)
[2023-11-26] MEDS: PREVNAR-20 VACCINE 0.5ML SYRINGE IM.IMMUN ONE (11:16)
[2023-11-26 11:55] VITALS: BP 143/76; TEMP 97.7; O2SAT 97
== END 2023-11-26 13:11 | disposition home or self-care (01) | DRG 556 ==
LOC: M ED 11:00 → M ED INP 20:15 → M MSPAV 11-26 00:39
PROVIDERS: ADMIT Internal Medicine; ATTEND Internal Medicine
DX: M79.89 Other specified soft tissue disorders (principal); I10 Essential (primary) hypertension; Z86.711 Personal history of pulmonary embolism; J45.909 Unspecified asthma, uncomplicated; E66.9 Obesity, unspecified; M19.90 Unspecified osteoarthritis, unspecified site; R60.0 Localized edema; L40.9 Psoriasis, unspecified; Z96.652 Presence of left artificial knee joint; Z87.891 Personal history of nicotine dependence; Z79.01 Long term (current) use of anticoagulants; Z79.1 Long term (current) use of non-steroidal anti-inflammatories (NSAID); Z79.899 Other long term (current) drug therapy; Z91.013 Allergy to seafood; Z68.39 Body mass index [BMI] 39.0-39.9, adult

== ENCOUNTER → 2023-12-17 | Outpatient (CLI) | payer MEDICARE, OTHER ==
[~2023-12-17] MED LIST changes: +ALEV220T22 PO; +CEPH500T PO; +DOXY-440 PO; +ELIQ2.5T PO; +MULT-40 PO; +RISA150P SC
== END ==
LOC: M PLALAB 09:58
PROVIDERS: ATTEND Internal Medicine Hematology
DX: U07.1 COVID-19 (principal)

== ENCOUNTER → 2023-12-19 | Outpatient (CLI) | payer OTHER, MEDICARE ==
[~2023-12-19] MED LIST changes: -DOXY-440 PO; -ELIQ2.5T PO; +ISOVUE-370 76% 100ML VIAL As Ordered ONE
== END ==
LOC: M RAD 08:18
PROVIDERS: ATTEND Internal Medicine Hematology & Oncology
DX: I26.99 Other pulmonary embolism without acute cor pulmonale (principal)
CPT/HCPCS: 71275; Q9967